=== PATIENT | female | born 2000 | race Caucasian/White ===

== ENCOUNTER 2021-02-13 19:34 | Emergency (ER) | payer MEDICAID ==
[~2021-02-13] VITALS: Ht 177.8 cm; Wt 56.8 kg
[2021-02-13 20:45] VITALS: BP 115/83
[2021-02-13 23:13] LABS: D-DIMER < 0.19 MG/L FEU (0-0.50)
== END 2021-02-14 00:44 | disposition home or self-care (01) ==
LOC: ER 19:35
DX: S86.912A Strain of unspecified muscle(s) and tendon(s) at lower leg level, left leg, initial encounter (principal); R07.89 Other chest pain; R42 Dizziness and giddiness; X58.XXXA Exposure to other specified factors, initial encounter; Y93.89 Activity, other specified; Y92.89 Other specified places as the place of occurrence of the external cause; Y99.8 Other external cause status
CPT/HCPCS: 36415; 85379; 99283

== ENCOUNTER 2024-06-12 17:33 | Emergency (ER) | payer MEDICAID ==
[~2024-06-12] VITALS: Ht 180.3 cm; Wt 61.4 kg
[2024-06-12] MEDS ORDERED: AMOX-117 PO (19:14)
[2024-06-12] MEDS ORDERED: IBUP-1984 PO (19:14)
[2024-06-12] MEDS: dexamethasone 4mg tablet PO ONE (19:36)
[2024-06-12] MEDS: LIDOcaine 2% Viscous 15ml cup MM STA (19:36)
[2024-06-12] MEDS: amox tr/potassium clavulanate 875/125mg TAB PO ONE (19:36)
[2024-06-12 19:48] VITALS: BP 124/84; PULSE 78; RESP 15; TEMP 98.1; O2SAT 97
== END 2024-06-12 19:50 | disposition home or self-care (01) ==
LOC: ER 17:33
DX: J03.80 Acute tonsillitis due to other specified organisms (principal); J35.8 Other chronic diseases of tonsils and adenoids
CPT/HCPCS: 99284

== ENCOUNTER 2025-04-09 13:27 | Emergency (ER) | payer MEDICAID ==
[~2025-04-09] VITALS: Ht 177.8 cm; Wt 59.4 kg
--- NOTE | 2025-04-09 13:48 | Physician Documentation ---
History of Present Illness ~ Chief Complaint: Blurred Vision Stated Complaint: VISION PROBLEMS Time Seen by MD: 14:09 OK to notify your PCP?: Yes Primary Medical Doctor: KELSEY QUICK Source: patient Mode of Arrival: POV Exam Limitations: no limitations HPI This is a 24-year-old female who presents with concern for episodes of blurred vision that progressed to headache described as pressure in the back of my socket, patient reports that she has been experiencing these episodes for the past 11 years in the last time supplement was two years prior, patient reports that she has not been evaluated by primary care or specialist for these concerns and in the past has presented to the emergency department after symptoms resolved and been discharged to follow up with the primary care. Patient reports she is currently experiencing his symptoms so decided to come to the emergency department for evaluation while symptoms were present. Patient reports blurred vision begins as a spot that is a large as over a proximally 30 minutes to block a section of her field of vision. States blurred vision has resolved, no photophobia. No nausea, vomiting, worst headache of her life, fever, chills. Medication Reconciliation Allergies: Uncoded Allergies: WALNUTS (Allergy, Intermediate, THROAT ITCHING, 06/12/24) ERYTHROMYCIN (Allergy, Unknown, 06/12/24) Past Medical History Past Medical History: No Pertinent History Past Surgical History: noncontributory Lives In: Home Review of Systems All Other Systems at this time: Reviewed and Negative ROS As stated above in the HPI, otherwise all systems are reviewed and negative. Physical Exam Vital Signs: Temperature: 97.4, Source: Temporal, Heart Rate: 64, Respiratory Rate: 16, BP: 117/81, Pulse Oximetry: 100, Weight: 59.400 Oxygen Flow Rate: 0 Physical Exam VITALS: Reviewed and as above. GENERAL: Alert, nontoxic appearing, no apparent distress. HEENT: NCAT, PERRLA, EOMI, NO PHOTOPHOBIA, RESPIRATORY: No increased work of breathing, no respiratory distress, speaking in full clear sentences Neck: Supple, trachea midline. Cardiovascular: RRR. No m/r/g. Lungs: CTAB. Breathing unlabored Extremities: Normal inspection. No edema. Skin: Warm/dry, normal color Neurological: Alert and oriented x4, normal gait. Psychiatric: Affect congruent with mood. Progress Results/Orders Results/Orders Vital Signs 04/09/25 04/09/25 13:31 14:16 Temp 97.4 Pulse 64 Resp 16 18 B/P (MAP) 117/81 Pulse Ox 100 O2 Flow Rate 0 Medical Decision Making Findings MSE performed in triage and patient returned to ED lobby by nursing staff to await available ED room Eye Diff. Dx: Considerations: Include: [place], Conjuctivits-allergic, Conjuctivitis-bacterial, Conjuctivits-chlamydial, Conjuctivitis-viral, Corneal abrasion, Corneal laceration, Corneal ulceration, Foreign body-conjuctiva, Foreign body-corneal, Foreign body-intraocular, Foreign body-lid, Glaucoma, Globe rupture, Hordeolum, Iritis, Orbital cellulitis, Periobital cellulitis, Retinal artery occulsion, Retinal vein occlusion, Rust ring, Subconjunctival hem, Ultraviolet keratitis, Uveitis, Vitreous hemorrhage Departure Time of Disposition: 14:42 Disposition: 01 HOME / SELF CARE / HOMELESS Impression: Primary Impression: Ocular migraine Condition: Stable Discharge Instructions: Migraine Headache, [id number] Additional Instructions: Symptoms are consistent with an ocular migraine recommend that you follow up wi th your primary care provider and a neurologist. Your primary care provider can complete FMLA paperwork for you since you will be with your employer for one year next month and this will allow you to miss days without needing to have a doctor's note when you have these migraines while protecting your job. You are allowed 90 days of FMLA a year. Return to ER if worst headache of your life or any atypical symptoms. Tried to identify triggers Referrals: NO PRIMARY CARE PROVIDER (PCP) Education Educated: Patient Educated regarding: diagnosis, treatment, need for follow up Signature Scribe Signature: x Attestation: ELEAZAR Santana Apr 09, 2025 13:48 GISELL DUNCAN Apr 09, 2025 14:45
[2025-04-09 14:56] VITALS: BP 111/82; PULSE 86; RESP 16; TEMP 97.7; O2SAT 98
== END 2025-04-09 14:59 | disposition home or self-care (01) ==
LOC: ER 13:27
DX: G43.809 Other migraine, not intractable, without status migrainosus (principal)
CPT/HCPCS: 99282